=== PATIENT | female | born 1975 | race Caucasian/White ===

== ENCOUNTER → 2017-08-02 | Outpatient (CLI) | payer OTHER ==
--- NOTE | 2017-08-02 15:16 | REP ---
MAXILLOFACIAL CT WITHOUT CONTRAST: HISTORY: Chronic pansinusitis. Bilateral Yaneth cells are present. Minimal mucosal thickening is present in the ethmoid, left frontal and right maxillary sinuses. The remaining sinuses are clear. Mucosal thickening involves the right osteomeatal unit. The left osteomeatal unit is patent. The middle and inferior nasal turbinates are partially paradoxical. There is minimal deviation of the nasal septum to the left. The cribriform plate, medial meehan of the orbits and optic canals are intact. The carotid canals form a segment of the posterolateral meehan of the sphenoid sinus. IMPRESSION: Sinus mucosal thickening as described above. Signed by Hilario Meek MD 08/02/2017 03:17 P
== END ==
LOC: M RAD 14:27
PROVIDERS: ATTEND Otolaryngology
DX: J32.4 Chronic pansinusitis (principal)

== ENCOUNTER 2025-06-18 12:20 | Emergency (ER) | payer OTHER, SELFPAY ==
[2025-06-18 12:25] VITALS: BP 135/79; TEMP 97.7; O2SAT 99
== END 2025-06-18 14:14 | disposition left against medical advice (07) ==
LOC: M ED 12:20
DX: Z53.21 Procedure and treatment not carried out due to patient leaving prior to being seen by health care provider (principal)